=== PATIENT | male | born 1950 | race Caucasian/White ===

== ENCOUNTER → 2018-12-18 | Day surgery (SDC) | payer MEDICARE ==
[~2018-12-18] MED LIST: BUPIVACAINE HCL 0.5 % INJ/PF 30 ML SDV ONE; METHYLPREDNISOLONE ACETATE INJ 80 MG/1 ML VIAL ONE
--- NOTE | 2018-12-18 16:05 | RADIOLOGY REPORT (SQ) ---
EXAM DESCRIPTION: FLUORO/NEEDLE PLACEMENT; INJECT/ASPIR HIP/SHLDR/KNEE COMPLETED DATE/TIME: 12/18/2018 2:50 pm REASON FOR STUDY: PRIMARY OA, LEFT SHOULDER (M19.012) M19.012 PRIMARY OSTEOARTHRITIS, LEFT SHOULDER COMPARISON: None. FLUOROSCOPY TIME: 0.3 minutes. 1 images saved to PACS. LIMITATIONS: None. PROCEDURE: SITE OF INJECTION: Left shoulder. LOCALIZING CONTRAST TYPE AND DOSE: 6.1 mL Omnipaque. MEDICATION TYPE AND DOSE: 80 mg Depo-Medrol and 5 mL bupivacaine. Using local anesthesia and sterile technique with fluoroscopic guidance, the needle was advanced into the joint. Iodinated contrast was injected to verify intraarticular placement. This was followed by therapeutic injection of the indicated medications. The needle was removed. There were no immediat e complications. Preprocedure pain level: 3/5. Postprocedure pain level: 1/5. IMPRESSION: THERAPEUTIC INJECTION OF THE LEFT SHOULDER JOINT ABOVE. COMMENT: Patient medication list reviewed: Yes- Quality ID# [id number]:Eligible professional attests to doc umenting in the medical record they obtained, updated, or reviewed the patient's current medications. . Quality ID 145: Final reports for procedures using fluoroscopy that document radiation exposure wendy swapnil, or exposure time and number of fluorographic images (if radiation exposure indices are not avail able) TECHNICAL DOCUMENTATION: JOB ID: [id number] [employer]- All Rights Reserved Reading location - IP/workstation name: [email or web address]
--- NOTE | 2018-12-18 16:05 | RADIOLOGY REPORT (SQ) ---
EXAM DESCRIPTION: FLUORO/NEEDLE PLACEMENT; INJECT/ASPIR HIP/SHLDR/KNEE COMPLETED DATE/TIME: 12/18/2018 2:50 pm REASON FOR STUDY: PRIMARY OA, LEFT SHOULDER (M19.012) M19.012 PRIMARY OSTEOARTHRITIS, LEFT SHOULDER COMPARISON: None. FLUOROSCOPY TIME: 0.3 minutes. 1 images saved to PACS. LIMITATIONS: None. PROCEDURE: SITE OF INJECTION: Left shoulder. LOCALIZING CONTRAST TYPE AND DOSE: 6.1 mL Omnipaque. MEDICATION TYPE AND DOSE: 80 mg Depo-Medrol and 5 mL bupivacaine. Using local anesthesia and sterile technique with fluoroscopic guidance, the needle was advanced into the joint. Iodinated contrast was injected to verify intraarticular placement. This was followed by therapeutic injection of the indicated medications. The needle was removed. There were no immediat e complications. Preprocedure pain level: 3/5. Postprocedure pain level: 1/5. IMPRESSION: THERAPEUTIC INJECTION OF THE LEFT SHOULDER JOINT ABOVE. COMMENT: Patient medication list reviewed: Yes- Quality ID# [id number]:Eligible professional attests to doc umenting in the medical record they obtained, updated, or reviewed the patient's current medications. . Quality ID 145: Final reports for procedures using fluoroscopy that document radiation exposure wendy swapnil, or exposure time and number of fluorographic images (if radiation exposure indices are not avail able) TECHNICAL DOCUMENTATION: JOB ID: [id number] [employer]- All Rights Reserved Reading location - IP/workstation name: [email or web address]
== END ==
LOC: RAD 12:57 → EDSTATUS 14:00
PROVIDERS: ATTEND Family Medicine
DX: M19.012 Primary osteoarthritis, left shoulder (principal)
CPT/HCPCS: 20610; 77002; J3490; J1040

== ENCOUNTER 2019-03-16 04:45 | Emergency (ER) | payer MEDICARE ==
[2019-03-16] MEDS ORDERED: KETOROLAC TROMETHAMINE INJ/PF 30 MG/1 ML SDV IV ONE (05:48)
[2019-03-16] MEDS ORDERED: DEXAMETHASONE SOD PHOS INJ 10 MG/1 ML VIAL IM ONE (05:48)
--- NOTE | 2019-03-16 06:21 | ER Document Report ---
ED General - General Chief Complaint: Hand Pain Stated Complaint: LEFT HAND SWELLING Time Seen by Provider: 03/16/19 05:31 Primary Care Provider: HEATHER RODRIGUEZ MD [Primary Care Provider] - Follow up as needed Mode of Arrival: Ambulatory Information source: Patient Notes: 68-year-old male presented to ED for complaint of redness pain and swelling to the left hand and wrist. He states the pain is been for couple days he went to an MD yesterday for pain in both wrist the right hand got better but the left hand got worse overnight. He states he has had pain in both hands for about a year but not as bad as it is at this time. He states he put an init-yee-rkeerxs brace on his hand last night and the swelling and pain became much worse so he came to the emergency room. There is redness and swelling and warmth to the left hand and wrist TRAVEL OUTSIDE OF THE [place] IN LAST 30 DAYS: No - HPI Onset: Other - Pain in both wrist and hand started about a year ago became much worse last night on the left Onset/Duration: Gradual, Worse Quality of pain: Burning, Sharp Severity: Severe Pain Level: 5 Associated symptoms: Other - Redness swelling and pain left wrist and hand Exacerbated by: Movement Relieved by: Denies Similar symptoms previously: Yes Recently seen / treated by doctor: No - Related Data Allergies/Adverse Reactions: No Known Allergies Allergy (Verified 03/16/19 05:01) Past Medical History - General Information source: Patient - Social History Smoking Status: Current Every Day Smoker Cigarette use (# per day): Yes - 1 1/2 packs/day Smoking Education Provided: Yes - 4 minutes Frequency of alcohol use: None Drug Abuse: None Occupation: [employer] Family History: Reviewed & Not Pertinent Patient has suicidal ideation: No Patient has homicidal ideation: No - Past Medical History Cardiac Medical History: Reports: None Pulmonary Medical History: Reports: None EENT Medical History: Reports: None Neurological Medical History: Reports: None Endocrine Medical History: Reports: None Renal/ Medical History: Reports: None Malignancy Medical History: Reports None GI Medical History: Reports: None Musculoskeletal Medical History: Reports Hx Musculoskeletal Deformity - Torn shoulder did not need surgery right knee torn meniscus, Reports Hx Musculoskeletal Trauma Skin Medical History: Reports None Psychiatric Medical History: Reports: None Traumatic Medical History: Reports: None Infectious Medical History: Reports: None Past Surgical History: Reports: Hx Orthopedic Surgery - Left foot surgery - Immunizations Immunizations up to date: Yes Review of Systems - Review of Systems Constitutional: No symptoms reported EENT: No symptoms reported Cardiovascular: No symptoms reported Respiratory: No symptoms reported Gastrointestinal: No symptoms reported Genitourinary: No symptoms reported Male Genitourinary: No symptoms reported Musculoskeletal: Other - Pain redness swelling wraps to the left wrist and hand Skin: No symptoms reported Hematologic/Lymphatic: No symptoms reported Neurological/Psychological: No symptoms reported -: Yes All other systems reviewed and negative Physical Exam - Vital signs Vitals: Temp Pulse Resp BP Pulse Ox 97.7 F 72 20 139/80 H 100 03/16/19 04:54 03/16/19 04:54 03/16/19 04:54 03/16/19 04:54 03/16/19 04:54 Interpretation: Normal - General General appearance: Appears well, Alert - HEENT Head: Normocephalic, Atraumatic Eyes: Normal Pupils: PERRL - Respiratory Respiratory status: No respiratory distress Chest status: Nontender Breath sounds: Normal Chest palpation: Normal - Cardiovascular Rhythm: Regular Heart sounds: Normal auscultation Murmur: No - Abdominal Inspection: Normal Distension: No distension Bowel sounds: Normal Tenderness: Nontender Organomegaly: No organomegaly - Back Back: Normal, Nontender - Extremities General upper extremity: Normal temperature General lower extremity: Normal inspection, Nontender, Normal color, Normal ROM, Normal temperature, Normal weight bearing. No: Chrissy's sign Wrist: Other - Pain redness and warmth to the left wrist and hand Hand: Tender, Swelling, Other - Pain redness and warmth to the left wrist and hand - Neurological Neuro grossly intact: Yes Cognition: Normal Orientation: AAOx4 [place] Coma Scale Eye Opening: Spontaneous [place] Coma Scale Verbal: Oriented [place] Coma Scale Motor: Obeys Commands Bárbara Coma Scale Total: 15 Speech: Normal Motor strength normal: LUE, RUE, LLE, RLE Sensory: Normal - Psychological Associated symptoms: Normal affect, Normal mood - Skin Skin Temperature: Warm Skin Moisture: Dry Skin Color: Normal Course - Vital Signs Vital signs: Temp Pulse Resp BP Pulse Ox 97.7 F 71 16 129/85 H 100 03/16/19 08:26 03/16/19 08:26 03/16/19 08:26 03/16/19 08:26 03/16/19 08:26 - Laboratory Result Diagrams: 03/16/19 06:30 03/16/19 06:30 Laboratory results interpreted by me: 03/16/19 03/16/19 06:30 06:30 WBC 12.4 H RDW 15.7 H Absolute Neuts (auto) 9.6 H BUN 22 H - Diagnostic Test Radiology reviewed: Image reviewed, Reports reviewed Procedures - Immobilization Left Wrist Time completed: 08:35 Pre-Proc Neuro Vasc Exam: Normal Immobilizer type: Cock-up Performed by: PCT Post-Proc Neuro Vasc Exam: Normal Alignment checked and good: Yes Discharge - Discharge Clinical Impression: Gout of left hand Qualifiers: Gout etiology: unspecified cause Chronicity: acute Qualified Code(s): M10.9 - Gout, unspecified Condition: Stable Disposition: HOME, SELF-CARE Additional Instructions: Gout You have been diagnosed as having gout. Gout is a problem caused by an excess of uric acid, a natural chemical found in the body. The cause of this disease is unknown. Gout arthritis occurs when crystals of uric acid form in the joints. The big toe is the most common joint involved, but any joint can become affected. Persons with gout may also form uric acid kidney stones, resulting in flank pain and blood in the urine. Nodules of uric acid may form under the skin. The first step of treatment is to decrease the inflammation in the joint with antiinflammatory medication. Medication to lower the uric acid level in the blood may then be prescribed. This medication should be taken regularly, as any sudden change in dosage may provoke an attack of gout. Some foods, such as red meat, can provoke an attack in some gout sufferers. Call the doctor if new symptoms arise, or if you do not improve. Gout Diet Changing your diet can decrease the uric acid in your blood. High levels of uric acid cause gouty arthritis and uric acid kidney stones. If you have gout, you should avoid meats that are high in purine. Meat products to avoid include liver, kidneys, and brains. In general, poultry is better than red meats. Seafoods to avoid include anchovies, sardines, merchant, mackerel, and scallops. In addition to limiting purine-rich foods, people with gout should limit protein intake to 10-15% of total calories. Carbohydrate intake should be around 50% of total daily calories. Limit fat intake to 30% of total daily calories. Cholesterol intake should be less than 300 mg/day. Maintain or achieve a healthy body weight. Weight loss should be gradual. Rapid weight loss can actually increase uric acid levels temporarily. Alcohol, especially beer, should be avoided. Get plenty of fluids. This dilutes urinary uric acid, and helps prevent uric acid kidney stones. Drink eight to twelve cups of water daily. Colchicine Colchicine is a medication used in acute attacks of gout arthritis. It's usually very effective at stopping an attack if started within the first day of pain. It can also be used to prevent attacks. Standard treatment for an acute attack is one tablet every one or two hours until the pain subsides. Maximum of 3 doses a day Intestinal symptoms such as nausea, vomiting, or diarrhea are common with colchicine. These side effects become more likely with higher doses of the medicine. When taking colchicine for an acute gout attack, stop taking the pills when intestinal symptoms develop. Call the physician if you develop fever, worsening joint pain, rash, shortness of breath or wheezing, itching, or severe abdominal symptoms. FOLLOW-UP CARE: If you have been referred to a physician for follow-up care, call the physicians office for an appointment as you were instructed or within the next two days. If you experience worsening or a significant change in your symptoms, notify the physician immediately or return to the Emergency Department at any time for re-evaluation. Prescriptions: Colchicine [Colcrys 0.6 mg Tablet] 0.6 mg PO Q1HP PRN #9 tablet MDD 3 PRN Reason: Pain Scale Of 3 Forms: Elevated Blood Pressure, Smoking Cessation Education, Return to Work Referrals: HEATHER RODRIGUEZ MD [Primary Care Provider] - Follow up as needed
[2019-03-16 06:46] LABS: ABSOLUTE EOSINOPHILS # (AUTO) 0.1 10^3/uL (0.0-0.6); ABSOLUTE LYMPHOCYTES (AUTO) 1.6 10^3/uL (0.5-4.7); ABSOLUTE NEUT (AUTO) 9.6 10^3/uL (1.7-8.2); BASOPHILS % (AUTO) 0.3 % (0-2); EOSINOPHILS % (AUTO) 0.8 % (0-6); HEMATOCRIT 40.7 % (37.9-51.0); LYMPHOCYTES % (AUTO) 13.1 % (13-45); MEAN CORPUSCULAR HGB CONC 34.3 g/dL (32.0-36.0); MEAN CORPUSCULAR VOLUME 84 fl (80-97); MONOCYTES % (AUTO) 8.1 % (3-13); PLATELET COUNT 252 10^3/uL (150-450); RED BLOOD COUNT 4.82 10^6/uL (4.35-5.55); RED CELL DISTRIBUTION WIDTH 15.7 % (11.5-14.0); SEGMENTED NEUTROPHILS % (AUTO) 77.7 % (42-78); TOTAL CELLS COUNTED % (AUTO) 100 %; WHITE BLOOD COUNT 12.4 10^3/uL (4.0-10.5)
[2019-03-16 07:07] LABS: ALBUMIN 4.2 g/dL (3.5-5.0); ALKALINE PHOSPHATASE 95 U/L (38-126); ANION GAP 11 (5-19); ASPARTATE AMINO TRANSFERASE 20 U/L (17-59); BILIRUBIN,DIRECT 0.2 mg/dL (0.0-0.4); BILIRUBIN,TOTAL 0.8 mg/dL (0.2-1.3); BLOOD UREA NITROGEN 22 mg/dL (7-20); CALCIUM 9.5 mg/dL (8.4-10.2); CARBON DIOXIDE 25 mmol/L (22-30); CHLORIDE 101 mmol/L (98-107); GLUCOSE 104 mg/dL (75-110); POTASSIUM 4.2 mmol/L (3.6-5.0); TOTAL PROTEIN 7.4 g/dL (6.3-8.2); URIC ACID 5.9 mg/dL (3.5-8.5)
--- NOTE | 2019-03-16 07:45 | RADIOLOGY REPORT (SQ) ---
Left hand three view on 03/16/2019 at 5:51 AM CLINICAL INDICATION: Left hand pain COMPARISON: None FINDINGS: There is mild diffuse osteopenia. There are no fractures. Mild changes of osteoarthritis are noted in the IP joints. Visualized joints are well aligned. There is a small chronic appearing calcification along the radial aspect of the base of the first proximal phalanx at may be related to old injury but please correlate with location of pain. No other bony abnormality is noted. IMPRESSION: Likely chronic but age indeterminate avulsion fracture likely off the radial base of the first proximal phalanx, please correlate with location of pain.
--- NOTE | 2019-03-16 07:46 | RADIOLOGY REPORT (SQ) ---
Left wrist three view on 03/16/2019 at 5:52 AM CLINICAL INDICATION: Left wrist pain and swelling COMPARISON: None FINDINGS: There is calcification of the triangular fibrocartilage consistent with chondrocalcinosis and CPPD. There are no fractures. Visualized joints are well aligned. No other bony abnormality is noted. IMPRESSION: No acute abnormality.
[2019-03-16] MEDS ORDERED: COLCHICINE 0.6 MG TABLET PO ONE (08:11)
[2019-03-16 08:29] VITALS: BP 129/85
== END 2019-03-16 08:33 | disposition home or self-care (01) ==
LOC: ER 04:45
DX: M10.9 Gout, unspecified (principal); M79.642 Pain in left hand; M25.532 Pain in left wrist; F17.210 Nicotine dependence, cigarettes, uncomplicated; Z71.6 Tobacco abuse counseling
CPT/HCPCS: 99283; 96372; 96374; 36415; 84550; 85025; 80053; 73130; 73110; L3908; A9270; J1885; J1100

== ENCOUNTER 2019-05-15 09:02 | Emergency (ER) | payer MEDICARE ==
[2019-05-15 09:13] VITALS: BP 107/71
[2019-05-15] MEDS ORDERED: COLCHICINE 0.6 MG TABLET PO ONE (09:27)
[2019-05-15] MEDS ORDERED: KETOROLAC TROMETHAMINE 60 MG/2 ML SDV IM ONE (09:27)
[2019-05-15] MEDS ORDERED: DEXAMETHASONE SOD PHOS INJ 10 MG/1 ML VIAL IM ONE (09:27)
--- NOTE | 2019-05-15 09:28 | ER Document Report ---
HPI - HPI Time Seen by Provider: 05/15/19 09:13 Pain Level: 3 Context: This 68-year-old male presents emergency department complaints of bilateral hand pain started yesterday. Reports he recently started a new project approximately 1-1/2 months ago and is starting to have severe hand pain. Reports he has been treated for gout but then followed up with his primary care provider who told him it was not gout. He reports he told him it was arthritis. Patient denies injury. Denies past medical history of injury to the hands. He reports he is building onto his son's house which she started approximately 1-1/2 months ago and that is when the pain started. No other complaint such as fever vomiting diarrhea. Associated Symptoms: None Exacerbated by: Denies Relieved by: Denies Similar symptoms previously: Yes Recently seen / treated by doctor: Yes - CONSTITUTIONAL Constitutional: DENIES: Fever, Chills - EENT EENT: DENIES: Sore Throat, Ear Pain, Eye problems - CARDIOVASCULAR Cardiovascular: DENIES: Chest pain - RESPIRATORY Respiratory: DENIES: Trouble Breathing, Coughing - REPRODUCTIVE Reproductive: DENIES: : Past Medical History - General Information source: Patient - Social History Smoking Status: Current Every Day Smoker Cigarette use (# per day): No Chew tobacco use (# tins/day): No Frequency of alcohol use: None Drug Abuse: None Occupation: construction Family History: Reviewed & Not Pertinent Patient has suicidal ideation: No Patient has homicidal ideation: No Musculoskeletal Medical History: Reports Hx Arthritis, Reports Hx Musculoskeletal Deformity - Torn shoulder did not need surgery right knee torn meniscus, Reports Hx Musculoskeletal Trauma Past Surgical History: Reports: Hx Orthopedic Surgery - Left foot surgery - Immunizations Immunizations up to date: Yes Vertical Provider Document - CONSTITUTIONAL Agree With Documented VS: Yes Exam Limitations: No Limitations General Appearance: WD/WN, No Apparent Distress - INFECTION CONTROL TRAVEL OUTSIDE OF THE [place] IN LAST 30 DAYS: No - HEENT HEENT: Atraumatic, Normocephalic - NECK Neck: Supple - RESPIRATORY Respiratory: Breath Sounds Normal, No Respiratory Distress - CARDIOVASCULAR Cardiovascular: Regular Rate, Regular Rhythm - MUSCULOSKELETAL/EXTREMETIES Musculoskeletal/Extremeties: MAEW, FROM, Non-Tender - No erythema no swelling no warmth patient has full range of motion no pain with palpation. No swelling to the joints. Cap refill appropriate for age radial pulse +3 - NEURO Level of Consciousness: Awake, Alert, Appropriate Motor/Sensory: No Motor Deficit - DERM Integumentary: Warm, Dry Course - Re-evaluation Re-evalutation: 05/15/19 09:58 68-year-old male presents with complaints of bilateral hand pain that started yesterday. Reports he started having this pain approxi-1-1/2 months ago when he started a new project. He is building a deck onto his son's house. Patient reports he was diagnosed with gout in the emergency department. When he followed up with his primary care provider and here he was told it was not gout it was arthritis. Patient complains of bilateral hand pain no individual joint pain. No erythema or swelling noted. He was treated for arthritis. He was given a list of primary care providers to follow-up with. Patient reports he has been healthy his whole life. He does not have any past history. He reports he does not have a primary care provider. Patient was instructed on Toradol and Decadron. He was also encouraged to follow-up with a primary care provider for further physical and referral to orthopedic or rheumoatologist as indicated - Vital Signs Vital signs: Temp Pulse Resp BP Pulse Ox 97.5 F 90 18 107/71 98 05/15/19 09:12 05/15/19 09:12 05/15/19 09:12 05/15/19 09:12 05/15/19 09:12 Discharge - Discharge Clinical Impression: Pain in both hands Condition: Stable Disposition: HOME, SELF-CARE Instructions: Arthritis ([facility]), Family Physicians / Practices, Gout Diet ([facility]), Ibuprofen (General) ([facility]), Steroid Medication Injection, Toradol Injection ([facility]) Additional Instructions: *You have been evaluated for bilateral hand pain *take medication as prescribed *follow gout diet *Follow up with a primary care provider within one week for evaluation and recheck *Return to ED for worsening condition, changes, needs Prescriptions: Ibuprofen [Motrin 800 mg Tablet] 800 mg PO TID #15 tablet Forms: Smoking Cessation Education Referrals: HEATHER RODRIGUEZ MD [COMMUNITY BASED STAFF] - Follow up in 3-5 days
== END 2019-05-15 10:02 | disposition home or self-care (01) ==
LOC: ER 09:02
DX: M79.641 Pain in right hand (principal); M79.642 Pain in left hand; F17.200 Nicotine dependence, unspecified, uncomplicated
CPT/HCPCS: 99283; 96372; J1885; J1100